=== PATIENT | female | born 1975 | race Caucasian/White ===

== ENCOUNTER 2020-05-22 13:19 | Emergency (ER) | payer OTHER ==
[~2020-05-22] VITALS: Ht 167.6 cm; Wt 92.8 kg
--- NOTE | 2020-05-22 15:05 | NUR ---
TEARER NOTE: PT CALLED TO TRIAGE BY ISABELLA BROWN FOR EXAM.
[2020-05-22 15:40] LABS: ALBUMIN 4.1 g/dL (3.4-5.0); ANION GAP 6 mmol/L (5-15); CALCIUM 9.2 mg/dL (8.5-10.1); CHLORIDE 107 mmol/L (98-107); CREATININE 0.79 mg/dL (0.55-1.02)
[2020-05-22 15:48] LABS: BASOPHILS # (AUTO) 0.04 x10^3/uL (0-0.1); BASOPHILS % (AUTO) 0 % (0-1); EOSINOPHILS % (AUTO) 1 % (1-7); LYMPHOCYTES # (AUTO) 2.93 x10^3/uL (1-3.4); LYMPHOCYTES % (AUTO) 30 % (22-44); MD NO; MEAN CORPUSCULAR HGB CONC 32.8 g/dL (32.4-35.8); MEAN CORPUSCULAR VOLUME 91.6 fL (80-100); MEAN PLATELET VOLUME 9.2 fL (7.4-10.4); MONOCYTES # (AUTO) 0.64 x10^3/uL (0.2-0.8); MONOCYTES % (AUTO) 7 % (2-9); NEUTROPHILS # (AUTO) 6.14 x10^3/uL (1.8-6.8); NEUTROPHILS % (AUTO) 62 % (42-75); PLATELET COUNT 242 x10^3/uL (130-400); RED BLOOD COUNT 4.94 x10^6/uL (3.82-5.3); RED CELL DISTRIBUTION WIDTH 12.6 % (9.6-15.2)
--- NOTE | 2020-05-22 16:00 | NUR ---
MED STUDENT AT BEDSIDE FOR ED EVAL.
[2020-05-22] MEDS ORDERED: MECLIZINE CHEWABLE 25 MG TAB PO ONE (16:30)
[2020-05-22] MEDS ORDERED: ONDANSETRON ODT 4 MG PO ONE (16:30)
[2020-05-22] MEDS ORDERED: MECLIZINE CHEWABLE 25 MG TAB ONE (16:31)
[2020-05-22] MEDS ORDERED: ONDANSETRON ODT 4 MG ONE (16:31)
[2020-05-22 16:53] VITALS: BP 124/62
--- NOTE | 2020-05-22 17:27 | NUR ---
AT BEDSIDE FOR RECHECK.
--- NOTE | 2020-05-22 17:48 | NUR ---
Patient given discharge instructions and they have confirmed that they understand the instructions. Patient ambulatory with steady gait.
== END 2020-05-22 18:05 | disposition home or self-care (01) ==
LOC: ED 16:19
DX: R42 Dizziness and giddiness (principal); R51 Headache; R20.2 Paresthesia of skin; R94.31 Abnormal electrocardiogram [ECG] [EKG]; E03.9 Hypothyroidism, unspecified; Z90.710 Acquired absence of both cervix and uterus
CPT/HCPCS: 36415; 80048; 82040; 85025; 93005; 99284; Q0162